=== PATIENT | female | born 1955 | race Caucasian/White ===

== ENCOUNTER 2019-03-28 10:46 | Observation (INO) ==
[2019-03-28] MEDS ORDERED: LEVOFLOXACIN INJ 750 MG in PREMIX 1 EACH IV STA (12:04)
[2019-03-28] MEDS ORDERED: methylPREDNISolone SOD SUC 40 MG/1 ML VIAL IM STA (12:04)
[2019-03-28 12:45] LABS: Basophils # 0.1 10*3/uL (0.0-0.2); Eosinophils # 0.2 10*3/uL (0.0-0.87); Eosinophils % 2.5 % (0.00-10.9); Hematocrit 44.7 VOL% (35.7-47.0); Hemoglobin 15.2 GM/DL (12.0-16.0); Immature Granulocytes % 0.3 %; Immature Granulocytes Absolute 0.02 #; Lymphocytes # 1.8 10*3/uL (1.4-4.0); Lymphocytes % 24.9 % (21.3-54.2); Mean Platelet Volume 9.7 FL (9.6-12.0); Monocytes % 4.2 % (1.7-12.7); Neutrophils % 67.1 % (38.7-73.9); Platelet Count 260 T/CUMM (130-400); Red Cell Distribution Width 12.6 % (9.3-17.3); White Blood Count 7.2 T/CUMM (4-12)
[2019-03-28] MEDS ORDERED: methylPREDNISolone SOD SUC 40 MG/1 ML VIAL IV STA (12:48)
[2019-03-28 13:07] LABS: Blood Urea Nitrogen 9 MG/DL (7-18); Calcium 9.2 MG/DL (8.5-10.1); Glucose 252 MG/DL (74-106); Osmolality,Calculated 284.5 MOS/KG (273-304)
[2019-03-28] MEDS ORDERED: ALBUTEROL 2.5 MG/3 ML NEB RESP TX STA ×2 (14:07→16:19)
[2019-03-28] MEDS ORDERED: DEXTROSE 50% 25 GM/50 ML VIAL IV PRN (16:22)
[2019-03-28] MEDS ORDERED: ACETAMINOPHEN 325 MG TABLET PO PRN (16:22)
[2019-03-28] MEDS ORDERED: GLUCAGON 1 MG VIAL IM PRN (16:22)
[2019-03-28] MEDS ORDERED: ONDANSETRON 4 MG/2 ML VIAL IV PRN (16:22)
[2019-03-28] MEDS ORDERED: ALBUTEROL 2.5 MG/3 ML NEB RESP TX PRN (16:26)
[2019-03-28] MEDS ORDERED: HYDROcodone/CHLORPHENIRAMINE ER 5 ML UDCUP PO PRN (16:27)
[2019-03-28] MEDS: INSULIN LISPRO 100 UNIT/ML SUBCUT SCH ×2 (17:41→21:17)
[2019-03-28] MEDS: CARVEDILOL 6.25 MG TABLET PO SCH (17:43)
[2019-03-28] MEDS: ENOXAPARIN 40 MG/0.4 ML SYRINGE SUBCUT SCH (17:43)
[2019-03-28] MEDS: cefTRIAXone 1,000 MG in SYRINGE 1 EACH IV SCH (17:44)
[2019-03-28] MEDS: methylPREDNISolone SOD SUC 125 MG/2 ML VIAL IV SCH ×2 (17:44→23:52)
[2019-03-28] MEDS: SODIUM CHLORIDE 0.45% 1,000 ML IV SCH (18:02)
[2019-03-28] MEDS: DOCUSATE SODIUM 100 MG CAPSULE PO SCH (21:47)
[2019-03-29] MEDS: SODIUM CHLORIDE 0.45% 1,000 ML IV SCH ×3 (01:59→23:03)
[2019-03-29 05:35] LABS: Basophils % 0.1 % (0.0-0.8); Hematocrit 42.2 VOL% (35.7-47.0); Hemoglobin 14.4 GM/DL (12.0-16.0); Immature Granulocytes % 0.4 %; Immature Granulocytes Absolute 0.06 #; Lymphocytes # 0.8 10*3/uL (1.4-4.0); Lymphocytes % 5.9 % (21.3-54.2); Mean Corpuscular HGB Conc 34.1 GM/DL (32-36); Mean Corpuscular Volume 85.4 FL (87-102); Mean Platelet Volume 9.8 FL (9.6-12.0); Monocytes % 0.4 % (1.7-12.7); Neutrophils % 93.2 % (38.7-73.9); Platelet Count 241 T/CUMM (130-400); Red Blood Count 4.94 MC/CUMM (3.8-5.5); Red Cell Distribution Width 12.8 % (9.3-17.3); White Blood Count 13.3 T/CUMM (4-12)
[2019-03-29 06:13] LABS: Hypochromasia 1+; Lymphocytes 5 % (20-55); Platelet Estimate Adequate; Segmented Neutrophils 95 % (50-85); Total Cells Counted 100
[2019-03-29] MEDS: CHOLECALCIFEROL 5,000 UNIT TABLET PO SCH (08:51)
[2019-03-29] MEDS: DOCUSATE SODIUM 100 MG CAPSULE PO SCH ×2 (08:51→23:00)
[2019-03-29] MEDS: CARVEDILOL 6.25 MG TABLET PO SCH ×2 (08:51→16:31)
[2019-03-29] MEDS: PANTOPRAZOLE 40 MG TABLET PO SCH (08:51)
[2019-03-29] MEDS: INSULIN LISPRO 100 UNIT/ML SUBCUT SCH ×5 (08:53→23:00)
[2019-03-29] MEDS ORDERED: INSULIN NPH 100 UNIT/ML SUBCUT SCH (09:00)
[2019-03-29] MEDS: methylPREDNISolone SOD SUC 125 MG/2 ML VIAL IV SCH ×2 (09:10→16:31)
[2019-03-29] MEDS: cefTRIAXone 1,000 MG in SYRINGE 1 EACH IV SCH (09:47)
[2019-03-29] MEDS: ENOXAPARIN 40 MG/0.4 ML SYRINGE SUBCUT SCH (09:47)
[2019-03-29] MEDS ORDERED: ALBUTEROL 2.5 MG/3 ML NEB RESP TX SCH (11:00)
[2019-03-29] MEDS: ALBUTEROL/IPRATROPIUM 3 ML NEB RESP TX SCH ×2 (13:28→19:21)
[2019-03-29] MEDS ORDERED: INSULIN REGULAR 100 UNIT/ML IV ONE (15:42)
[2019-03-30] MEDS: ALBUTEROL/IPRATROPIUM 3 ML NEB RESP TX SCH ×4 (00:06→19:50)
[2019-03-30] MEDS: methylPREDNISolone SOD SUC 125 MG/2 ML VIAL IV SCH ×2 (01:19→10:21)
[2019-03-30] MEDS: INSULIN LISPRO 100 UNIT/ML SUBCUT SCH ×2 (09:36→12:45)
[2019-03-30] MEDS: INSULIN NPH 100 UNIT/ML SUBCUT SCH (09:38)
[2019-03-30] MEDS: cefTRIAXone 1,000 MG in SYRINGE 1 EACH IV SCH (09:38)
[2019-03-30] MEDS: ENOXAPARIN 40 MG/0.4 ML SYRINGE SUBCUT SCH (09:38)
[2019-03-30] MEDS: methylPREDNISolone SOD SUC 40 MG/1 ML VIAL IV SCH ×2 (09:39→21:27)
[2019-03-30] MEDS: DOCUSATE SODIUM 100 MG CAPSULE PO SCH ×2 (09:39→20:53)
[2019-03-30] MEDS: CHOLECALCIFEROL 5,000 UNIT TABLET PO SCH (09:40)
[2019-03-30] MEDS: CARVEDILOL 6.25 MG TABLET PO SCH ×2 (09:40→16:33)
[2019-03-30] MEDS: PANTOPRAZOLE 40 MG TABLET PO SCH (09:41)
[2019-03-30] MEDS: SODIUM CHLORIDE 0.45% 1,000 ML IV SCH (12:44)
[2019-03-30] MEDS: INSULIN REGULAR 100 UNIT/ML SUBCUT SCH ×2 (16:32→20:54)
[2019-03-31] MEDS: ALBUTEROL/IPRATROPIUM 3 ML NEB RESP TX SCH ×3 (01:00→13:04)
[2019-03-31] MEDS: SODIUM CHLORIDE 0.45% 1,000 ML IV SCH ×2 (01:31→15:54)
[2019-03-31] MEDS: INSULIN REGULAR 100 UNIT/ML SUBCUT SCH ×2 (09:01→12:07)
[2019-03-31] MEDS: INSULIN NPH 100 UNIT/ML SUBCUT SCH (09:02)
[2019-03-31] MEDS: cefTRIAXone 1,000 MG in SYRINGE 1 EACH IV SCH (09:02)
[2019-03-31] MEDS: CARVEDILOL 6.25 MG TABLET PO SCH (09:04)
[2019-03-31] MEDS: methylPREDNISolone SOD SUC 40 MG/1 ML VIAL IV SCH (09:04)
[2019-03-31] MEDS: ENOXAPARIN 40 MG/0.4 ML SYRINGE SUBCUT SCH (09:04)
[2019-03-31] MEDS: PANTOPRAZOLE 40 MG TABLET PO SCH (09:05)
[2019-03-31] MEDS: CHOLECALCIFEROL 5,000 UNIT TABLET PO SCH (09:05)
[2019-03-31] MEDS: DOCUSATE SODIUM 100 MG CAPSULE PO SCH (09:06)
[2019-03-31] MEDS ORDERED: predniSONE 20 MG TABLET PO SCH (11:00)
[2019-03-31 11:42] VITALS: BP 120/63
[2019-04-01] MEDS ORDERED: predniSONE 20 MG TABLET PO SCH (09:00)
[2019-04-05] MEDS ORDERED: predniSONE 20 MG TABLET PO SCH (09:00)
== END 2019-03-31 15:55 | disposition home or self-care (01) ==
LOC: N.ED 10:46 → N.EDINP 10:46 → N.2E 16:47
PROVIDERS: ADMIT Family Medicine; ATTEND Family Medicine